=== PATIENT | male | born 1940 | race Caucasian/White ===

== ENCOUNTER 2017-01-02 08:00 | Day surgery (SDC) | payer BC, MEDICARE ==
[~2017-01-02 08:00] MED LIST: Lactated Ringers 1,000 ML IV SCH; Sodium Chloride 0.9% 10 ML Syringe FLUSH PRN
[2017-01-02] MEDS ORDERED: fentaNYL 100 MCG/2 ML SDV ONE ×2 (08:49→09:10)
[2017-01-02] MEDS ORDERED: Midazolam 1 MG/ML 2 ML SDV ONE ×2 (08:49→09:10)
[2017-01-02] MEDS ORDERED: Propofol 200 MG/20 ML SDV ONE ×2 (08:50→09:10)
--- NOTE | 2017-01-02 09:15 | PCM.HPR ---
H & P Addendum review - H & P Addendum Review Date of Original H & P: 12/06/16 Date Reviewed: 01/02/17 Time Reviewed: 08:05 Patient was examined: No Changes (ok to proceed with colonoscopy)
--- NOTE | 2017-01-02 09:38 | PCM.OPNOTE ---
- General Post-Op/Procedure Note Date of Surgery/Procedure: 01/02/17 Operative Procedure(s): Colonoscopy Findings: Normal Pre Op Diagnosis: Hx Colon CA Post-Op Diagnosis: Same Anesthesia Technique: MAC Primary Surgeon: Ricardo Cary Anesthesia Provider: Lotus Vasquez Complications: None Condition: Good
[2017-01-02 09:59] VITALS: BP 107/57
--- NOTE | 2017-01-02 12:01 | OR ---
Date of Procedure: 01/02/2017 PREOPERATIVE DIAGNOSIS: History of colon cancer. POSTOPERATIVE DIAGNOSIS: Normal colonoscopy. PROCEDURE: Colonoscopy. ANESTHESIA: IV sedation. PROCEDURE: The patient was brought to the procedure room, where he was placed on his left side and IV sedation administered. Digital rectal exam was performed which was normal. Colonoscope was inserted and advanced to the level of the cecum without difficulty. Cecal position was confirmed by identifying the appendiceal lumen and ileocecal valve. I did intubate the terminal ilium which appears normal. Prep was good and surfaces were well visualized. Upon withdrawing the scope, the ascending, transverse, and descending colon were normal in appearance. Sigmoid colon and rectum were normal. The area approximately 25 cm was thoroughly inspected and there is no evidence of local recurrence of the cancerous polyp removed years ago. The rectum was normal and retroflexion was normal. Air was removed and the scope withdrawn. The patient tolerated the procedure well and returned to recovery in stable condition. The patient has had a couple of normal colonoscopy since his initial diagnosis many years ago, so I feel he can wait five years until his next colon screening. STEWART GREY MD /[id number]
== END 2017-01-02 10:45 | disposition home or self-care (01) ==
LOC: LL.SDS 08:00
PROVIDERS: ATTEND Surgery
DX: Z12.11 Encounter for screening for malignant neoplasm of colon (principal); N40.0 Benign prostatic hyperplasia without lower urinary tract symptoms; E11.9 Type 2 diabetes mellitus without complications; K21.9 Gastro-esophageal reflux disease without esophagitis; E78.2 Mixed hyperlipidemia; Z98.890 Other specified postprocedural states; Z79.84 Long term (current) use of oral hypoglycemic drugs; Z79.899 Other long term (current) drug therapy; Z88.2 Allergy status to sulfonamides; Z79.82 Long term (current) use of aspirin; Z87.891 Personal history of nicotine dependence
CPT/HCPCS: 45378; 82962; J2250; J2704; J3010; J7120